=== PATIENT | female | born 1965 | race Caucasian/White ===

== ENCOUNTER 2017-03-24 08:02 | Inpatient (IN) ==
--- NOTE | 2017-03-23 21:43 | Discharge Summary ---
<Francine Neville - Last Filed: 03/23/17 21:41> Date of Encounter: 03/23/17 - Discharge Diagnosis (1) Rotator cuff tear arthropathy of right shoulder Priority: Primary Status: Acute (2) Status post total replacement of right shoulder Priority: Primary Status: Acute (3) Chronic nausea Status: Chronic (4) HTN (hypertension) Priority: Secondary Status: Chronic Qualifiers: Hypertension type: essential hypertension Qualified Code(s): I10 - Essential (primary) hypertension (5) Rheumatoid arthritis Priority: Secondary Status: Chronic Qualifiers: Rheumatoid arthritis location: unspecified site Rheumatoid factor presence : unspecified presence Qualified Code(s): M06.9 - Rheumatoid arthritis, unspecified (6) History of seizure Priority: Secondary Status: Chronic (7) Chronic pain Priority: Secondary Status: Chronic Comments: Continue Percocet 7.5/325 q 6 hours - Take Oxycodone for breakthrough pain. Qualifiers: Chronic pain type: other chronic pain Qualified Code(s): G89.29 - Other chronic pain - Discharge Medications Home Medications: OxyCODONE Immed Rel [Roxicodone 5 MG] 5 - 10 mg PO DAILY #20 tablet 03/23/17 [Rx ] Adalimumab [Humira] 40 mg SQ QWEEK 03/24/17 [History] Allopurinol [Zyloprim 100 MG] 100 mg PO DAILY 03/24/17 [History] Atorvastatin Calcium [Lipitor] 20 mg PO DAILY 03/24/17 [History] Calcitriol [Rocaltrol] 0.25 mg PO DAILY 03/24/17 [History] Folic Acid 1 mg PO DAILY 03/24/17 [History] Furosemide [Lasix] 40 mg PO DAILY 03/24/17 [History] HydrOXYzine Pamoate [Vistaril] 50 mg PO Q6H 03/24/17 [History] Leflunomide 20 mg PO DAILY 03/24/17 [History] Levothyroxine [Synthroid] 75 mcg PO 0630 03/24/17 [History] Magnesium Oxide [Magnesium] 400 mg PO DAILY 03/24/17 [History] [place]-3/Dha/Epa/Fish Oil [Fish Oil 1,000 mg Softgel] 1 cap PO DAILY 03/24/17 [ History] Omeprazole [PriLOSEC] 40 mg PO DAILY 03/24/17 [History] Oxycodone HCl/Acetaminophen [Percocet 7.5-325 mg Tablet] 1 tab PO Q6H PRN [History] Potassium Chloride [K-Tab ER] 20 meq PO DAILY 03/24/17 [History] Promethazine HCl 12.5 mg PO Q6H PRN 03/24/17 [History] Psyllium Husk [Daily Fiber] 0.52 gm PO DAILY 03/24/17 [History] Spironolactone [Aldactone] 50 mg PO QAM 03/24/17 [History] Zolpidem [Ambien] 5 mg PO HS PRN 03/24/17 [History] amLODIPine [Norvasc] 5 mg PO DAILY 03/24/17 [History] levETIRAcetam [Keppra] 250 mg PO BID 03/24/17 [History] sulfaSALAzine [Sulfasalazine] 500 mg PO BID 03/24/17 [History] Allergies/Adverse Reactions: 3 Allergy/AdvReac Type Severity Reaction Status Date / Time ciprofloxacin [From Cipro] Allergy Rash Verified 03/24/17 08:29 codeine Allergy Vomiting Verified 03/24/17 08:29 latex Allergy Rash Verified 03/24/17 08:29 tramadol Allergy Seizure Verified 03/24/17 08:29 Erythromycin Base AdvReac Nausea Verified 03/24/17 08:29 Primary care physician: Zaheer Aguayo CNP - Patient Status Disposition: Home, Self-Care Condition: Good - Discharge Instructions Follow Up With: Zaheer Aguayo CNP [Primary Care Provider] - - Hospital Course Hospital course: Ms. Jordan is a 52 year old female - Time Spent with Patient Total time spent providing and/or coordinating discharge services: <Harrison Johnson - Last Filed: 03/25/17 06:45> Date of Encounter: 03/25/17 Time of Encounter: 06:44 - Discharge Diagnosis (1) Rotator cuff tear arthropathy of right shoulder Priority: Primary Status: Chronic (2) Status post total replacement of right shoulder Priority: Primary Status: Acute (3) Chronic nausea Priority: Secondary Status: Chronic (4) HTN (hypertension) Priority: Secondary Status: Chronic Qualifiers: Hypertension type: essential hypertension Qualified Code(s): I10 - Essential (primary) hypertension (5) Rheumatoid arthritis Priority: Secondary Status: Chronic Qualifiers: Rheumatoid arthritis location: unspecified site Rheumatoid factor presence : unspecified presence Qualified Code(s): M06.9 - Rheumatoid arthritis, unspecified (6) History of seizure Priority: Secondary Status: Chronic (7) Chronic pain Priority: Secondary Status: Chronic Qualifiers: Chronic pain type: other chronic pain Qualified Code(s): G89.29 - Other chronic pain (8) Acute blood loss anemia Status: Acute Primary care physician: Zaheer Aguayo CNP - Patient Status Functional capacity at discharge: independent ambulation Overall status at discharge: patient is progressing back to baseline - Hospital Course Hospital course: Ms. Jordan is a 52 year old female Status post right total shoulder replacement. Patient with hemoglobin 6.9 full repeat patient is asymptomatic. The patient had an uneventful postoperative course. They received antibiotics and physical therapy and were discharged in stable condition. There will follow -up in the office in 2 weeks. - Time Spent with Patient Total time spent providing and/or coordinating discharge services:
--- NOTE | 2017-03-24 08:39 | History & Physical Report ---
Date of Encounter: 03/24/17 Time of Encounter: 08:38 24 Hour HP Update - Instructions Instructions: If the History and Physical is less than 30 days old and was completed prior to A.M. admission and or procedure and has NOT been updated on calendar day of procedure please complete this update prior to performing procedure. - Update Patient reports changes in Medical Condition: No Changes in examination, assessment, or condition: No Changes in Medication: No Preop tests/diagnostics Reviewed: Yes Surgery Remains Indicated: Yes Consent for Planned Operative Procedure(s) Verified: Yes - Pre-Operative Checklist Preoperative Checklist Indicated: No Prophylactic Antibiotic Ordered: Yes Is VTE Prophylaxis Indicated?: Yes
[2017-03-24] MEDS ORDERED: CeFAZolin Pre 2,000 MG/100 ML 2,000 MG/100 ML BAG IVPB ONE (08:43)
--- NOTE | 2017-03-24 08:43 | Anesthesia Evaluation PreOp ---
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 on keppra, no issues) Other Medical History: Renal (ckd stage 3), Thyroid, GERD, Other (gout) Anesthesia History: No Prior Anesthetic Complications, Past Anesthesia (c/s, appy, hernia, rcr, foot, ablation, l tsr) Alcohol Use: none Drug use: none Medications and Allergies OxyCODONE Immed Rel [Roxicodone 5 MG] 5 - 10 mg PO DAILY #20 tablet 03/23/17 [Rx ] Adalimumab [Humira] 40 mg SQ QWEEK 03/24/17 [History] Allopurinol [Zyloprim 100 MG] 100 mg PO DAILY 03/24/17 [History] Atorvastatin Calcium [Lipitor] 20 mg PO DAILY 03/24/17 [History] Calcitriol [Rocaltrol] 0.25 mg PO DAILY 03/24/17 [History] Folic Acid [Folic Acid] 1 mg PO DAILY 03/24/17 [History] Furosemide [Lasix] 40 mg PO DAILY 03/24/17 [History] HydrOXYzine Pamoate [Vistaril] 50 mg PO Q6H 03/24/17 [History] Leflunomide [Leflunomide] 20 mg PO DAILY 03/24/17 [History] Levothyroxine [Synthroid] 75 mcg PO 0630 03/24/17 [History] Magnesium Oxide [Magnesium] 400 mg PO DAILY 03/24/17 [History] [place]-3/Dha/Epa/Fish Oil [Fish Oil 1,000 mg Softgel] 1 cap PO DAILY 03/24/17 [ History] Omeprazole [PriLOSEC] 40 mg PO DAILY 03/24/17 [History] Oxycodone HCl/Acetaminophen [Percocet 7.5-325 mg Tablet] 1 tab PO Q6H PRN [History] Potassium Chloride [K-Tab ER] 20 meq PO DAILY 03/24/17 [History] Promethazine HCl 12.5 mg PO Q6H PRN 03/24/17 [History] Psyllium Husk [Daily Fiber] 0.52 gm PO DAILY 03/24/17 [History] Spironolactone [Aldactone] 50 mg PO QAM 03/24/17 [History] Zolpidem [Ambien] 5 mg PO HS PRN 03/24/17 [History] amLODIPine [Norvasc] 5 mg PO DAILY 03/24/17 [History] levETIRAcetam [Keppra] 250 mg PO BID 03/24/17 [History] sulfaSALAzine [Sulfasalazine] 500 mg PO BID 03/24/17 [History] 3 Allergy/AdvReac Type Severity Reaction Status Date / Time ciprofloxacin [From Cipro] Allergy Rash Verified 03/24/17 08:29 codeine Allergy Vomiting Verified 03/24/17 08:29 latex Allergy Rash Verified 03/24/17 08:29 tramadol Allergy Seizure Verified 03/24/17 08:29 Erythromycin Base AdvReac Nausea Verified 03/24/17 08:29 - Meds/Allergy Pre-op Review Medications Reviewed: Yes Allergies Reviewed: Yes Beta Blockers on Current Med List: No Anesthesia Results - Labs Laboratory Tests 03/12/17 03/12/17 03/12/17 15:40 15:40 15:40 Hgb 10.4 L Hct 33.8 L Plt Count 170 PT 11.3 INR 1.0 APTT 29.9 Latex Allergen IgE Ab <0.10 - Imaging EKG: report reviewed (sr) Anesthesia Exam O2 Sat Height 1.65 m Height 1.65 m Weight 67.585 kg Weight 67.585 kg O2 Sat by Pulse Oximetry 96 Vital Signs Temp Pulse Resp BP Pulse Ox 97.9 F 68 18 125/66 96 03/24/17 08:21 03/24/17 08:21 03/24/17 08:21 03/24/17 08:21 03/24/17 08:21 Height: 1.65 Weight: 67 NPO (# of Hours): >8 - HEENT Pupil (Motor): Pupils equal, EOMI Mallampati: II Teeth: Poor dentition Oral Opening: Greater than 3 - DEMOGRAPHER LOC: Oriented DEMOGRAPHER Motor: Normal RUE, Normal LUE, Normal RLE, Normal LLE, Normal Face DEMOGRAPHER Sensory: Normal: RUE, LUE, RLE, LLE, Face - Cardiac Rhythm: Regular Murmur: None - Pulmonary Breath Sounds: bilateral Clear Respiratory Effort: Symmetrical Anesthesia Assess/Plan ASA Score: 2 Modified [place] Scale for Level of Consciousness: Cooperative, oriented, and tranquil Anesthetic Plan: General, Regional Monitoring Plan: Standard Monitors Recovery Plan: PACU
[2017-03-24] MEDS ORDERED: Plasma-Lyte A (PH 7.4) 1,000 ML IVC SCH (08:45)
[2017-03-24] MEDS ORDERED: ROPIVACAINE HCL/PF 0.5% 30 ML VIAL ONE (10:02)
[2017-03-24] MEDS ORDERED: *HR* Propofol 200 MG/20 ML VIAL IVP ONE ×2 (10:04→11:04)
[2017-03-24] MEDS ORDERED: *HR* FentaNYL (PF) 100 MCG/2 ML VIAL ONE (10:04)
[2017-03-24] MEDS ORDERED: *HR* Midazolam HCl 2 MG/2 ML VIAL ONE (10:04)
[2017-03-24] MEDS ORDERED: Lidocaine -MPF 2% 2 ML VIAL ONE ×2 (10:05→10:51)
[2017-03-24] MEDS ORDERED: *HR* Succinylcholine 200 MG/10 ML VIAL IVP ONE (10:05)
[2017-03-24] MEDS ORDERED: Dexamethasone 4 MG/ML VIAL ONE ×2 (10:53→13:08)
[2017-03-24] MEDS ORDERED: Ondansetron 4 MG/2 ML VIAL ONE (10:53)
[2017-03-24] MEDS ORDERED: Ondansetron 4 MG/2 ML VIAL IVP ONE (10:58)
[2017-03-24] MEDS ORDERED: EPHEDrine 50 MG/ML VIAL ONE (11:14)
--- NOTE | 2017-03-24 11:17 | Anesthesia Procedures ---
Date of Encounter: 03/24/17 Time of Encounter: 10:25 Procedures: Anesthesia - Nerve Block Procedure Date: 03/24/17 Time: 10:25 Allergies/Adv Reactions: Allergies ciprofloxacin [From Cipro] Allergy (Verified 03/24/17 08:29) Rash codeine Allergy (Verified 03/24/17 08:29) Vomiting latex Allergy (Verified 03/24/17 08:29) Rash tramadol Allergy (Verified 03/24/17 08:29) Seizure Erythromycin Base Adverse Reaction (Verified 03/24/17 08:29) Nausea Pre-op Diagnosis: right rotator cuff arthropathy Surgical Procedure: right reverse ball Checklist: Correct Patient Identifier, Correct procedure, History checked Correct side: Right Blood Thinner: No Monitor Applied: EKG, BP, Pulse Oximetry Supplemental Oxygen via Nasal Cannula (L/min): 2 Sedation: Versed (mg): 2 Sedation: Fentanyl (mcg): 100 Indication: Post Op Analgesia Pre-op Neuro Deficits: No Block Type: Interscalene Catheter placed: No Sterile Technique: Yes Ultrasound used: Yes Anatomy identified: Yes Visual spread of Local: Yes Neuro Stimulation: No Blood on Needle Aspiration: No Smooth Injection of Local: Yes Pain with Injection of Local: No Prep: Chlorhexadine Needle: 22 x 50 mm Stimuplex Local: Ropivacaine (0.5%) Volume (cc): 30 Number of Attempts: 1 Complications: None/effective block Comments: peripheral nerve block under ultrasound for postoperative pain per dr simpson request
--- NOTE | 2017-03-24 11:28 | Orthopedic Operative Note ---
Date of procedure: 03/24/17 Pre-op diagnosis: Right shoulder cuff tear arthropathy Post-op diagnosis: same Procedure: Procedure: Total Shoulder Replacment Reverse, right Estimated blood loss: 100 cc Hardware: Metal and polyethylene replacement: Arthrex medium glenoid baseplate , 2 4.5 screws. 1 6.5 screw, 39+4 glenosphere, 8 humeral stem, poly insert 6 Exam Under anesthesia: Full motion and no instability Procedural Notes: Irreparable tear supraspinatus tendon. Operative procedure: The patient was brought to the operating room and placed on the operating room table. After general anesthesia was administered the operative shoulder was examined. Findings were noted. The patient was placed in the modified beachchair position. All pressure points were padded appropriately. And the head was stabilized in the neutral position. The operative extremity was prepped and draped in the sterile surgical fashion. The patient received IV antibiotics prior to skin incision. A standard deltopectoral approach was made to the operative shoulder. Incision was made to the skin and subcutaneous tissue,hemo stasis was obtained with Bovie cautery. Using careful blunt dissection the cephalic vein was identified and mobilized medially. The deltopectoral interval was developed and the clavipectoral fascia was incised. The subscap was released off the lesser tuberosity and tagged with #2 FiberWire suture, subscap was irreparable. The humerus was dislocated patient noted to have irreparable tear supraspinatus tendon, and the humeral cut was made along the anatomic neck. Anterior and posterior Bankart retractors were placed to expose the glenoid. The glenoid guide was seated and the centering hole was made. It was reamed with the appropriate reamer. The median baseplate was seated and secured with (2) 4.5 screws and one 6.5 screw. The baseplate was irrigated and dried and the 39+4 Glenosphere was seated and secured with the Britton taper. The Britton taper was tested and found to be secure the humerus was redislocated and prepared with the diaphyseal reamers, followed by a broaching process up to the appropriate size 8 in the patient's anatomic version. The metaphyseal reamer was then utilized. Trial reduction found the shoulder to be relocatable. Trial components were removed and The appropriate 8 stem was impacted in place in the patient's anatomic version. Trial reduction found the shoulder to be relocatable and stable with the appropriate 6 Deneen Trial component was removed and the real Deneen was seated and secured the shoulder was reduced. The shoulder had excellent motion and excellent stability and no evidence of dislocation. The deep tissue was irrigated with pulse irrigation. The PA closed the shoulder. The deltopectoral interval was closed with a running #1 PDS suture, subcutaneous tissue was irrigated and closed with 0 PDS suture, the skin was closed with Dermabond. The patient was placed in a sterile dressing, abduction brace and extubated. The patient was then transferred to the recovery room in stable condition. Anesthesia: PAIGE Surgeon: Harrison Johnson Technical Services Representative: Francine Neville Condition: stable Disposition: PACU
[2017-03-24 12:03] LABS: Hematocrit 28.4 % (35.3-44.9); Hemoglobin 9.1 g/dL (11.5-15.4)
[2017-03-24] MEDS: *HR* HYDROmorphone (PF) 1 MG/ML SYRINGE IVP PRN ×2 (12:04→12:09)
[2017-03-24] MEDS ORDERED: Ringers Solution, Lactated 0 ML ONE (12:27)
[2017-03-24] MEDS ORDERED: 0.9 % Sodium Chloride 500 ML ONE (12:34)
--- NOTE | 2017-03-24 12:42 | Anesthesia Evaluation Post Op ---
Date of Encounter: 03/24/17 Time of Encounter: 12:42 - Vital Signs Vital Signs: Vital Signs/O2 Sat/Glucose, Most Current Temp Pulse Resp BP Pulse Ox 03/24/17 12:28 61 15 142/81 99 03/24/17 12:18 56 16 137/81 98 03/24/17 12:08 97.8 F 61 17 134/82 99 03/24/17 11:58 60 16 140/82 100 03/24/17 11:48 61 14 121/78 99 03/24/17 11:38 97.6 F 76 16 131/81 95 03/24/17 10:33 53 16 110/63 99 03/24/17 10:24 61 16 135/87 99 - Lungs Lungs: Clear Ascult./Percussion - Airway Airway: Non-obstructed - Cardiovascular Regular Rate - Mental Status Mental Status: Alert & Oriented, Answers Appropriately - Pain Pain Scale: 0 - Nausea Vomiting Nausea Vomiting: Not Present - Hydration Hydration: Ice chips - Discharge PostOp Status: Transfer Patient to floor
[2017-03-24] MEDS ORDERED: 0.9 % Sodium Chloride 1,000 ML IVC SCH (12:45)
[2017-03-24] MEDS ORDERED: NON-FORMULARY MEDICATION 1 EACH EACH (Adalimumab [Humira] 40 MG) SQ SCH (12:51)
[2017-03-24] MEDS ORDERED: Sennosides 8.6 MG TABLET PO PRN (12:51)
[2017-03-24] MEDS ORDERED: Ondansetron 4 MG/2 ML VIAL IVP PRN (12:51)
[2017-03-24] MEDS ORDERED: Naloxone 0.4 MG/ML INJ IVP PRN (12:51)
[2017-03-24] MEDS ORDERED: *HR* OxyCODONE Immed Rel 5 MG TABLET PO PRN (12:51)
[2017-03-24] MEDS ORDERED: Temazepam 15 MG CAPSULE PO PRN (12:51)
[2017-03-24] MEDS ORDERED: Ringers Solution, Lactated 1,000 ML IVC SCH (12:51)
[2017-03-24] MEDS ORDERED: MOM Conc 10 ML UD.LIQ PO PRN (12:51)
[2017-03-24] MEDS: hydrOXYzine pamoate 25 MG CAPSULE PO SCH ×2 (14:18→18:45)
[2017-03-24] MEDS: *HR* Enoxaparin 30 MG/0.3 ML SYRINGE SQ SCH (16:41)
[2017-03-24] MEDS: ceFAZolin 2,000 MG in D5% in Water 100 ML IVPB SCH (16:41)
[2017-03-24] MEDS ORDERED: *HR* Enoxaparin 30 MG/0.3 ML SYRINGE SQ SCH (18:00)
[2017-03-24] MEDS: *HR* OxyCODONE Immed Rel 5 MG TABLET PO PRN (18:45)
[2017-03-24] MEDS: levETIRAcetam 250 MG TABLET PO SCH (20:06)
[2017-03-24] MEDS: sulfaSALAzine 500 MG TABLET PO SCH (22:03)
[2017-03-25] MEDS: ceFAZolin 2,000 MG in D5% in Water 100 ML IVPB SCH (00:04)
[2017-03-25] MEDS: hydrOXYzine pamoate 25 MG CAPSULE PO SCH ×3 (00:04→11:31)
[2017-03-25] MEDS: *HR* OxyCODONE Immed Rel 5 MG TABLET PO PRN ×4 (00:04→15:58)
[2017-03-25] MEDS: *HR* HYDROmorphone (PF) 1 MG/ML SYRINGE IVP PRN ×2 (03:18→08:47)
[2017-03-25 05:41] LABS: Hematocrit 22.6 % (35.3-44.9)
[2017-03-25] MEDS: *HR* Enoxaparin 30 MG/0.3 ML SYRINGE SQ SCH (05:43)
[2017-03-25 05:45] LABS: Hemoglobin 6.9 g/dL (11.5-15.4)
--- NOTE | 2017-03-25 06:45 | Orthopedics Progress Note ---
Date of Encounter: 03/25/17 Time of Encounter: 06:45 - Assessment and Plan (1) Rotator cuff tear arthropathy of right shoulder Current Visit: Yes Status: Chronic (2) Status post total replacement of right shoulder Current Visit: Yes Status: Acute (3) Chronic nausea Current Visit: Yes Status: Chronic (4) HTN (hypertension) Current Visit: Yes Status: Chronic Qualifiers: Hypertension type: essential hypertension Qualified Code(s): I10 - Essential (primary) hypertension (5) Rheumatoid arthritis Current Visit: Yes Status: Chronic Qualifiers: Rheumatoid arthritis location: unspecified site Rheumatoid factor presence : unspecified presence Qualified Code(s): M06.9 - Rheumatoid arthritis, unspecified (6) History of seizure Current Visit: Yes Status: Chronic (7) Chronic pain Current Visit: Yes Status: Chronic Qualifiers: Chronic pain type: other chronic pain Qualified Code(s): G89.29 - Other chronic pain (8) Acute blood loss anemia Current Visit: Yes Status: Acute Subjective Interval history: Patient was seen this morning doing well without complaints. Afebrile vital signs stable. Operative extremity: Neurovascularly intact Dressing clean dry and intact Calves nontender Assessment and plan: Continue with postoperative care Hemoglobin 6. 9 repeat H&H plan for discharge today Objective Vital signs: Vital Signs Temp Pulse Resp BP Pulse Ox 03/25/17 04:39 98.1 F 74 18 118/79 95 03/25/17 00:11 98.1 F 80 17 133/78 99 03/24/17 20:00 97 03/24/17 18:01 98.7 F 105 18 122/84 97 03/24/17 15:57 97.4 F L 69 16 101/74 92 03/24/17 15:00 97.6 F 68 16 122/82 93 03/24/17 13:46 97.5 F L 62 16 135/72 100 03/24/17 13:27 97.3 F L 57 12 135/79 100 03/24/17 12:56 97.4 F L 57 13 139/81 97 03/24/17 12:38 98.2 F 57 16 144/83 99 03/24/17 12:28 61 15 142/81 99 03/24/17 12:18 56 16 137/81 98 03/24/17 12:08 97.8 F 61 17 134/82 99 03/24/17 11:58 60 16 140/82 100 03/24/17 11:48 61 14 121/78 99 03/24/17 11:38 97.6 F 76 16 131/81 95 03/24/17 10:33 53 16 110/63 99 03/24/17 10:24 61 16 135/87 99 03/24/17 08:21 97.9 F 68 18 125/66 96 Intake and Output 03/24/17 03/24/17 03/25/17 15:59 23:59 07:59 Intake Total 580 / 580 800 / 800 Output Total 100 / 100 Balance -100 / -100 580 / 580 800 / 800 Intake: IV Fluids 100 / 100 Ancef 2,000 MG In 100 / 100 Dextrose 5% 100 ML @ 200 mls/hr IVPB Q8HR ALHAJI Rx#: [id number] Oral 480 / 480 800 / 800 Output: Estimated Blood Loss 100 / 100 Other: Meal Dinner Percent of Meal Consumed 100% # Voids 1 3 Weight 67.585 kg - Labs CBC & BMP: 03/25/17 05:09 Labs: Abnormal lab results Hgb 6.9 g/dL (11.5-15.4) L D 03/25/17 05:09 Hct 22.6 % (35.3-44.9) L 03/25/17 05:09 - VTE Documentation of Mechanical Device: Venous foot pump, device Consult Discharge Plan - Plan Referrals: Zaheer Aguayo, TRAIN PLANNER [Primary Care Provider] -
[2017-03-25 07:25] LABS: Hematocrit 25.5 % (35.3-44.9); Hemoglobin 7.8 g/dL (11.5-15.4)
[2017-03-25] MEDS ORDERED: Furosemide 20 MG/2 ML VIAL IVP PRN (07:48)
[2017-03-25] MEDS: levETIRAcetam 250 MG TABLET PO SCH (08:46)
[2017-03-25] MEDS: sulfaSALAzine 500 MG TABLET PO SCH (08:46)
[2017-03-25] MEDS ORDERED: (Omega-3/Dha/Epa/Fish Oil [Fish Oil 1,000 Mg Softgel] PO SCH (09:00)
[2017-03-25] MEDS ORDERED: Furosemide 40 MG TABLET PO SCH (09:00)
[2017-03-25] MEDS ORDERED: Psyllium 1 PACKET POWD.PACK PO SCH (09:00)
[2017-03-25] MEDS ORDERED: Magnesium Oxide 400 MG TABLET PO SCH (09:00)
[2017-03-25] MEDS ORDERED: (Leflunomide [Leflunomide] 20 MG) PO SCH (09:00)
[2017-03-25] MEDS ORDERED: amLODIPine 5 MG TABLET PO SCH (09:00)
[2017-03-25] MEDS ORDERED: Folic Acid 1 MG TABLET PO SCH (09:00)
[2017-03-25] MEDS ORDERED: 0.9 % Sodium Chloride 250 ML ONE ×2 (11:46→15:57)
--- NOTE | 2017-03-25 12:10 | Event Note ---
Date of Encounter: 03/25/17 Time of Encounter: 12:09 PCR - Right TSR - reverse POD#1 Patient seen at bedside. H/H 7.8 - transfusing 2 units today. Denied hemoptysis, or coffee grind stool History of Chronic nausea, Pain control: Chronic pain medication: Percocet 7.5 q 6 hours, planning to continue chronic pain medication at discharge and received 1 RX for breakthrough pain. Participating in PT. All questions and concerns addressed. Educated on use of incentive spirometer, ambulation, and hydration. Patient educated on post-operative restrictions and care. Addressed: See above D/C plan: Stabilizing H/H Home with outpatient PT or HH today or in AM.
--- NOTE | 2017-03-25 12:53 | Physician Discharge Referral ---
Home Health/Hosp Referral Info Transfer to: Home Health Provider in Charge Post Discharge: PCP - Diagnosis (1) Rotator cuff tear arthropathy of right shoulder Priority: Primary Status: Chronic (2) Status post total replacement of right shoulder Priority: Primary Status: Acute (3) Chronic nausea Priority: Secondary Status: Chronic (4) HTN (hypertension) Priority: Secondary Status: Chronic (5) Rheumatoid arthritis Priority: Secondary Status: Chronic (6) History of seizure Priority: Secondary Status: Chronic (7) Chronic pain Priority: Secondary Status: Chronic (8) Acute blood loss anemia Priority: Secondary Status: Acute - Respiratory Orders None Smoking Cessation: Smoking cessation has been advised. For more information, call the [place] Tobacco Quit Line at 6-191-SGOB-NOW. - Dressing/Wound Care Type of Dressing/Treatments w/Frequency: Opsite dressing, leave intact until first post-operative visit. If dressing becomes >50% saturated, contact office, remove dressing and place appropriate dressing in its place. Do not allow for dressing to get wet. - Diet/Nutrition Diet/Nutrition Orders: Regular - Activity Activity Orders: Up ad francisco, Ambulate - Services Needed Following services are medically necessary services: Nursing, Home Health Aide, Physical Therapy, Occupational Therapy Home Care Orders: Shoulder Precautions x 6 weeks. Apply cold therapy wrap 3-6x/day for 20 minutes at a time. Encourage ambulation throughout the day and incentive spirometer 10x/hour. Elevate affected extremity above heart as tolerated. NWB to affected upper extremity. Will remove brace at first post-operative appointment. OK to remove during PT/ OT. - Transfer Medications Home Medications: OxyCODONE Immed Rel [Roxicodone 5 MG] 5 - 10 mg PO DAILY #20 tablet 03/23/17 [Rx ] Adalimumab [Humira] 40 mg SQ QWEEK 03/24/17 [History] Allopurinol [Zyloprim 100 MG] 100 mg PO DAILY 03/24/17 [History] Atorvastatin Calcium [Lipitor] 20 mg PO DAILY 03/24/17 [History] Calcitriol [Rocaltrol] 0.25 mg PO DAILY 03/24/17 [History] Folic Acid 1 mg PO DAILY 03/24/17 [History] Furosemide [Lasix] 40 mg PO DAILY 03/24/17 [History] HydrOXYzine Pamoate [Vistaril] 50 mg PO Q6H 03/24/17 [History] Leflunomide 20 mg PO DAILY 03/24/17 [History] Levothyroxine [Synthroid] 75 mcg PO 0630 03/24/17 [History] Magnesium Oxide [Magnesium] 400 mg PO DAILY 03/24/17 [History] [place]-3/Dha/Epa/Fish Oil [Fish Oil 1,000 mg Softgel] 1 cap PO DAILY 03/24/17 [ History] Omeprazole [PriLOSEC] 40 mg PO DAILY 03/24/17 [History] Oxycodone HCl/Acetaminophen [Percocet 7.5-325 mg Tablet] 1 tab PO Q6H PRN [History] Potassium Chloride [K-Tab ER] 20 meq PO DAILY 03/24/17 [History] Promethazine HCl 12.5 mg PO Q6H PRN 03/24/17 [History] Psyllium Husk [Daily Fiber] 0.52 gm PO DAILY 03/24/17 [History] Spironolactone [Aldactone] 50 mg PO QAM 03/24/17 [History] Zolpidem [Ambien] 5 mg PO HS PRN 03/24/17 [History] amLODIPine [Norvasc] 5 mg PO DAILY 03/24/17 [History] levETIRAcetam [Keppra] 250 mg PO BID 03/24/17 [History] sulfaSALAzine [Sulfasalazine] 500 mg PO BID 03/24/17 [History] Allergies/Adverse Reactions: 3 Allergy/AdvReac Type Severity Reaction Status Date / Time ciprofloxacin [From Cipro] Allergy Rash Verified 03/24/17 08:29 codeine Allergy Vomiting Verified 03/24/17 08:29 latex Allergy Rash Verified 03/24/17 08:29 tramadol Allergy Seizure Verified 03/24/17 08:29 Erythromycin Base AdvReac Nausea Verified 03/24/17 08:29 Certification: Further, I certify that my clinical findings support that this patient is homebound (i.e. absences from home require considerable and taxing effort and are for medical reasons or [employer] services or infrequently or short duration when for other reasons) because: Homebound Reason: Post-surgery restriction and or conditions limit ability to leave home Attestation: My signature below is to certify that this patient is under my care and that I, or nurse practitioner, or a physician's recycling assistant working with me, has a face-to -face encounter with this patient.
[2017-03-25 18:45] VITALS: BP 138/85
== END 2017-03-25 20:15 | disposition home or self-care (01) | DRG 315 ==
LOC: SAMDAY 08:02 → 3NENU 13:10
PROVIDERS: ADMIT Orthopaedic Surgery; ATTEND Orthopaedic Surgery